=== PATIENT | male | born 1950 ===

== ENCOUNTER 2018-10-09 09:41 | Day surgery (SDC) | payer MEDICARE, BC ==
[2018-10-09] MEDS ORDERED: Lactated Ringer's 500 ML IV ONE ×2 (10:23)
--- NOTE | 2018-10-09 11:10 | CP.SDSHP ---
Same Day Surgery H & P - History Proposed Procedure: COLONSCOPY Pre-Op Diagnosis: SEE NOTES - Previous Medical/Surgical History Endocrine/Metabolic: Other Misc: Other Pain: 2.Mild Pain - Allergies Allergies: Allergies No Known Allergies Allergy (Verified 10/09/18 10:41) - Physical Exam General Appearance: N Vital Signs: Vital Signs 10/09/18 10:48 Temperature 98 F Pulse Rate 96 H Respiratory 20 Rate Blood Pressure 120/62 O2 Sat by Pulse 98 Oximetry Mental Status: Alert & Oriented x3 Neuro: WNL Heart: Other Lungs: WNL GI: Other - {Optional Preform as Required} Breast: WNL Abdomen: Other Rectal: Other Integument: WNL : WNL Ortho: WNL ENT: WNL - Impression Pt. Evaluated Today:Candidate for Anesthesia & Procedure: Yes - Date & Time Time: 11:09 Short Stay Discharge - Short Stay Discharge Admitting Diagnosis/Reason for Visit: COLON SCREENING Disposition: HOME/ ROUTINE
[2018-10-09] MEDS ORDERED: Lidocaine Hydrochloride 5 ML INJ ONE (11:15)
[2018-10-09] MEDS ORDERED: Propofol 10 mg/ml Inj (20 ML) ONE (11:15)
[2018-10-09] MEDS ORDERED: Belladonna-Phenobarbital PO ONE (11:45)
[2018-10-09 12:11] VITALS: TEMP 97.4
[2018-10-09 12:15] VITALS: BP 132/73; PULSE 94; RESP 15; O2SAT 98
== END 2018-10-09 12:30 | disposition home or self-care (01) ==
LOC: C.ENDO 09:41
PROVIDERS: ATTEND Specialist
DX: Z12.11 Encounter for screening for malignant neoplasm of colon (principal); K64.8 Other hemorrhoids
CPT/HCPCS: 45378; 88305; J2704; J7120